=== PATIENT | male | born 1950 | race Caucasian/White ===

== ENCOUNTER 2020-07-25 15:08 | Observation (INO) | payer OTHER ==
[~2020-07-25] VITALS: Ht 170.2 cm; Wt 64.5 kg
[2020-07-25 16:16] LABS: BASOPHILS % (AUTO) 0.5 % (0-1); EOSINOPHILS # (AUTO) 0.1 X10'3 (0-0.9); EOSINOPHILS % (AUTO) 0.7 % (0-6); HEMOGLOBIN 14.7 g/dl (14.0-17.9); LYMPHOCYTES # (AUTO) 1.8 X10'3 (1.1-4.8); LYMPHOCYTES % (AUTO) 24.1 % (21-51); MEAN CORPUSCULAR HEMOGLOBIN 30.6 PG (27.0-31.0); MEAN CORPUSCULAR HGB CONC 34.2 g/dL (33.0-36.5); MEAN CORPUSCULAR VOLUME 89.4 FL (78-98); MEAN PLATELET VOLUME 9.2 FL (7.4-10.4); MONOCYTES # (AUTO) 0.7 X10'3 (0-0.9); MONOCYTES % (AUTO) 9.6 % (2-12); NEUTROPHILS # (AUTO) 4.8 X10'3 (1.8-7.7); NEUTROPHILS % (AUTO) 65.1 % (42-75); PLATELET COUNT 252 X10'3 (140-440); RED BLOOD COUNT 4.81 X10'6 (4.70-6.10); RED CELL DISTRIBUTION WIDTH 13.5 % (11.5-14.5); WHITE BLOOD COUNT 7.4 X10'3 (4.5-11.0)
[2020-07-25 16:17] LABS: PARTIAL THROMBOPLASTIN TIME 27 SECONDS (22-32)
[2020-07-25] MEDS ORDERED: aspirin 325mg tablet PO ONE (16:25)
[2020-07-25 16:48] LABS: ALANINE AMINOTRANSFERASE 32 U/L (12-78); ALBUMIN 3.7 G/DL (3.4-5.0); ALBUMIN/GLOBULIN RATIO 0.9 (1.1-1.5); ALKALINE PHOSPHATASE 86 IU/L (46-116); ANION GAP 6 (8-16); ASPARTATE AMINO TRANSFERASE 13 U/L (10-37); BILIRUBIN,TOTAL 0.3 MG/DL (0.1-1.0); BLOOD UREA NITROGEN 19 MG/DL (7-18); BUN/CREATININE RATIO 16.7 (5.4-32.0); CALCIUM 9.3 MG/DL (8.5-10.1); CHLORIDE 104 MMOL/L (99-107); CREATININE 1.14 MG/DL (0.60-1.10); GLUCOSE 108 MG/DL (70-104); POTASSIUM 4.1 MMOL/L (3.5-5.1); SODIUM 136 MMOL/L (135-145); TOTAL CARBON DIOXIDE 26.5 MMOL/L (24-32); TOTAL PROTEIN 7.9 G/DL (6.4-8.2); eGFR 63 ML/MIN
[2020-07-25] MEDS ORDERED: ondansetron/PF 4mg/2ml inj IV PRN (17:05)
[2020-07-25] MEDS ORDERED: acetaminophen 325mg tablet PO PRN (17:05)
[2020-07-25] MEDS ORDERED: mag hydrox/Alum hydrox/simeth 30ml oral suspension PO PRN (17:05)
[2020-07-25] MEDS ORDERED: magnesium hydroxide 30ml (MOM) UD suspension PO PRN (17:05)
[2020-07-25] MEDS ORDERED: OMEP-50 PO (17:18)
[2020-07-25] MEDS ORDERED: FLO0.4C PO (17:18)
--- NOTE | 2020-07-25 17:49 | NUR ---
Patient in room ED 7. I have received report from Moises RUSH and had the opportunity to ask questions. Awaiting patient arrival in room 4012.
[2020-07-25 18:05] LABS: CHOL/HDL RATIO 7.2 (0.00-4.99); CHOLESTEROL 231 MG/DL (0-200); HDL CHOLESTEROL 32 MG/DL (35-60); LDL CHOLESTEROL 135 MG/DL (50-100); TRIGLYCERIDES 461 MG/DL (20-135)
--- NOTE | 2020-07-25 18:15 | NUR ---
Problems reprioritized. Patient report given, questions answered & plan of care reviewed with Michelle RUSH.
--- NOTE | 2020-07-25 18:26 | NUR ---
DR. MANNING IN TO SEE PT. REPORT HAS BEEN CALLED ALREADY BY DAY SHIFT RN, PRINCE. PT OK TO TRANSPORT TO THE FLOOR NOW. IPA [id number]
[2020-07-25] MEDS: normal saline 1000ml 1,000 ML IV SCH (18:30)
[2020-07-25 18:45] LABS: CLARITY,URINE CLEAR (Clear); COLOR,URINE YELLOW (Yellow); GLUCOSE, URINE NEGATIVE (Neg); KETONES,URINE NEGATIVE (Neg); LEUKOCYTE ESTERASE ,URINE NEGATIVE (Neg); NITRITES, URINE NEGATIVE (Neg); OCCULT BLOOD,URINE NEGATIVE (Neg); PROTEIN,URINE NEGATIVE (Neg); UA COLLECTION TYPE VOIDED; UROBILINOGEN,URINE 0.2 E.U/dL (0.2-1.0)
[2020-07-25 18:53] VITALS: BP 188/125
[2020-07-25] MEDS: heparin, porcine 5000 units/ml vial SQ SCH (19:37)
[2020-07-25 22:00] VITALS: BP 180/73
[2020-07-26] MEDS: normal saline 1000ml 1,000 ML IV SCH (03:44)
[2020-07-26 06:00] VITALS: BP 142/80
--- NOTE | 2020-07-26 06:11 | NUR ---
Report given to Imelda RUSH and Leeanne RUSH.
--- NOTE | 2020-07-26 06:16 | NUR ---
Patient in room ORTHO 4012. I have received report from Michelle RUSH and had the opportunity to ask questions and assume patient care.
--- NOTE | 2020-07-26 06:31 | NUR ---
Patient in room ORTHO 4012B. I have received report from ADRI Martinez and had the opportunity to ask questions and assume patient care. ADRI Fallon will care for pt, I am precepting Leeanne and will monitor all care
[2020-07-26] MEDS: heparin, porcine 5000 units/ml vial SQ SCH (07:04)
[2020-07-26 07:56] LABS: BASOPHILS % (AUTO) 0.4 % (0-1); EOSINOPHILS # (AUTO) 0.1 X10'3 (0-0.9); EOSINOPHILS % (AUTO) 1.1 % (0-6); HEMATOCRIT 40.5 % (42.0-52.0); HEMOGLOBIN 13.8 g/dl (14.0-17.9); LYMPHOCYTES # (AUTO) 1.8 X10'3 (1.1-4.8); LYMPHOCYTES % (AUTO) 26.8 % (21-51); MEAN CORPUSCULAR VOLUME 88.3 FL (78-98); MEAN PLATELET VOLUME 9.6 FL (7.4-10.4); MONOCYTES # (AUTO) 0.7 X10'3 (0-0.9); MONOCYTES % (AUTO) 10.1 % (2-12); NEUTROPHILS # (AUTO) 4.1 X10'3 (1.8-7.7); NEUTROPHILS % (AUTO) 61.6 % (42-75); PLATELET COUNT 236 X10'3 (140-440); RED BLOOD COUNT 4.59 X10'6 (4.70-6.10); WHITE BLOOD COUNT 6.6 X10'3 (4.5-11.0)
[2020-07-26] MEDS ORDERED: aspirin 81mg tablet.DR PO SCH (08:00)
[2020-07-26] MEDS ORDERED: atorvastatin 20mg tablet PO SCH (08:15)
[2020-07-26 08:51] LABS: ALBUMIN 3.3 G/DL (3.4-5.0); ANION GAP 9 (8-16); BLOOD UREA NITROGEN 14 MG/DL (7-18); BUN/CREATININE RATIO 15.4 (5.4-32.0); CALCIUM 8.8 MG/DL (8.5-10.1); CHLORIDE 106 MMOL/L (99-107); CREATININE 0.91 MG/DL (0.60-1.10); GLUCOSE 92 MG/DL (70-104); POTASSIUM 3.8 MMOL/L (3.5-5.1); SODIUM 139 MMOL/L (135-145); TOTAL CARBON DIOXIDE 24.3 MMOL/L (24-32); eGFR 82 ML/MIN
[2020-07-26] MEDS ORDERED: clopidogrel 75mg tablet PO SCH (09:00)
[2020-07-26 10:00] VITALS: BP 170/91
[2020-07-26] MEDS ORDERED: ASPI-1071 PO (10:53)
[2020-07-26] MEDS ORDERED: ATOR20TA66 PO (10:53)
[2020-07-26] MEDS ORDERED: LISI10TA27 PO (10:53)
[2020-07-26] MEDS ORDERED: CLOP75TA34 PO (10:53)
[2020-07-26] MEDS ORDERED: lisinopril 10 MG tablet PO ONE (10:55)
[2020-07-26 11:45] VITALS: BP_SYST 180
--- NOTE | 2020-07-26 11:52 | NUR ---
Page Sent to hospitalist MESSAGE: Leeanne RUSH [id number], RE: Anthony Thmoas Room 4012... Need handwritten Rx for lisinopril. Thank you.
--- NOTE | 2020-07-26 12:29 | NUR ---
Pt discharged at 12:30. Discharge reviewed with patient, all questions answered. All belongings sent with patient. Tele/IV removed with no complications. Pt discharged in stable condition. Pt picked up by family member in private vehicle.
--- NOTE | 2020-07-26 13:03 | NUR ---
ORIENTEE documentation: I have reviewed and agree with all interventions, assessments performed and documented by ADRI VERGARA.
--- NOTE | 2020-07-27 14:04 | NUR ---
CASE MANAGEMENT DISCHARGE FOLLOW UP: Spoke with pt via telephone. Reports that he is feeling fine, states strength, speech and facial drooping is improving; denies JOHNSON, visual changes, bleeding, dizziness. Pt states that after d/c he remembered having facial numbness above L lip at the nose that resolved on its own weeks ago. Verbalizes understanding of s/sx requiring further evaluation/emergent assistance. Verbalizes understanding of new and current medications. Verbalizes compliance with MD discharge instructions. Verbalizes understanding of the importance in making/keeping follow-up appointments, states waiting for callback [facility]. Pt is aware that he needs to get referral for a neurologist. States no further questions/concerns at this time.
== END 2020-07-26 12:30 | disposition home or self-care (01) ==
LOC: ER 15:09 → ED HOLD 17:02 → ORTHO 4S 18:50
PROVIDERS: ADMIT Family Medicine; ATTEND Family Medicine
DX: I63.9 Cerebral infarction, unspecified (principal); K21.9 Gastro-esophageal reflux disease without esophagitis; I10 Essential (primary) hypertension; N40.0 Benign prostatic hyperplasia without lower urinary tract symptoms; Z87.891 Personal history of nicotine dependence; Z79.899 Other long term (current) drug therapy
CPT/HCPCS: 36415; 70450; 70544; 70551; 71045; 80048; 80053; 80061; 81003; 85025; 85610; 85730; 87081; 92508; 92616; 93005; 93306; 96360; 96361; 96372; 97116; 97161; 97530; 99285; G0378; J1644; J7030